=== PATIENT | male | born 1975 | race Caucasian/White ===

== ENCOUNTER 2017-10-31 16:20 | Inpatient (IN) ==
--- NOTE | 2017-10-31 17:23 | Emergency Department Note ---
START Narrative - START START: I examined this patient and my medical decision-making was reviewed with the MOLD SPRAYER/PA/Advanced Practice Nurse/Resident Physician. I agree with the documented findings, disposition and treatment plan as described except to the extent set forth below. ED attending note: Patient seen with emergency medicine resident Dr. Nas Hanna. We independently evaluated the patient. We independently had face-to- face contact with the patient. Please see a copy of his note for details of the history and physical, evaluation, management and disposition of this emergency Department patient. Briefly: 42-year-old male prior history of heart problems. In by police for paranoid delusions thinking that there is report social medial route to get him. He is unable to care for self. Briefly decreased some suicidal ideations. Is awake and alert cooperative at this time. Physical examination is benign. We will undergo medical clearance and evaluation by mental health services. Disposition pending
--- NOTE | 2017-10-31 17:23 | Emergency Department Note ---
Disposition Clinical Impression: Psychosis Qualifiers: Psychosis type: delusional disorder Qualified Code(s): F22 - Delusional disorders Disposition: Admitted As Inpatient Condition: Good Referrals: NONE,PCP [Primary Care Provider] - Forms: ED Satisfaction Letter Time of Disposition: 21:52 General Adult HPI - General Chief complaint: ED Psychiatric Symptoms Stated complaint: psych Time Seen by Provider: 10/31/17 16:40 Source: patient Mode of arrival: ambulatory Limitations: no limitations Nursing Notes Reviewed: Yes Vital Signs Reviewed: Yes - History of Present Illness HPI Narrative: Patient is a 42-year-old male with a past medical history of anxiety, psychosis and admission to psychiatric facility presenting to the emergency department with complaints that people are out to get him on social media. Patient is denying any homicidal or suicidal thoughts or ideations. He is denying any recent drug use, however he does admit to marijuana use occasionally. Denies alcohol use at this time. Patient is speaking in very pressured tones appears very paranoid throughout my questioning. He states that there is people on social media are out to get him and his family also attack his children. Continuously tries to show me on his cellular device. Pain Scale: 5 - Related Data Previous Rx's Medication Instructions Recorded Gabapentin [Neurontin] 600 mg PO TID #90 capsule 05/11/17 LORazepam [Ativan] 1 mg PO TID PRN #30 tablet 05/11/17 OLANZapine [Zyprexa Zydis] 10 mg PO BID #60 tab.rapdis 05/11/17 Allergies Allergy/AdvReac Type Severity Reaction Status Date / Time No Known Allergies Allergy Verified 05/06/17 15:17 All systems ED: reviewed and negative except as stated. Review of Systems: As Per HPI Constitutional: Denies: fever, chills Cardiovascular: Denies: chest pain, palpitations Respiratory: Denies: cough Psychiatric: Reports: anxiety Past Medical History - Past Medical History Attestation: Yes The following information was validated with the patient. Medical history: Reports: no medical history, other Surgical history: Reports: no surgical history Psychiatric history: Reports: anxiety, ADHD, bipolar - Social History Smoking Status: Current every day smoker Smokeless Tobacco Status: No Alcohol use: Reports: none Drug use: Reports: none Physical Exam CONSTITUTIONAL: Alert and oriented X3, well-nourished, well appearing, in no apparent distress HEAD: Normocephalic; atraumatic. EYES: PERRL, no scleral icterus. NOSE: The nose is normal in appearance without rhinorrhea RESP: Normal chest excursion with respiration; breath sounds clear and equal bilaterally; no wheezes, rhonchi, or rales CARD: Regular rhythm, without murmurs, rub or gallop ABD: Non-distended; non-tender, soft,without rigidity, rebound or guarding SKIN: Normal for age and race; warm and dry; no apparent lesions Psych: Patient has pressured speech and is very paranoid. Denying SI and HI. - General Limitations: no limitations General appearance: alert, in no apparent distress Course - Reevaluation(s) Reevaluation #1: ED evaluation is completed, mental health evaluation determined that admission is required. They requested medication. Patient is getting IM Geodon and Ativan. Admission orders placed. PT stable Time: 21:51 Vital Signs Temperature 97.3 F L 10/31/17 16:22 Pulse Rate 113 10/31/17 16:22 Respiratory Rate 18 10/31/17 16:22 Blood Pressure 139/92 10/31/17 16:22 O2 Sat by Pulse Oximetry 100 10/31/17 16:22 Temperature 97.3 F L 10/31/17 16:22 Pulse Rate 0 10/31/17 20:00 Respiratory Rate 12 10/31/17 20:00 Blood Pressure 0/0 10/31/17 20:00 O2 Sat by Pulse Oximetry 0 10/31/17 20:00 Oxygen Delivery Oxygen Delivery Room Air Medical Decision Making - Medical Records Medical records reviewed: Yes I reviewed the patient's medical records. - Lab Data Lab results reviewed: Yes I reviewed the patient's lab results. Result diagrams: 10/31/17 17:39 10/31/17 17:39 Lab Results 10/31/17 10/31/17 10/31/17 Range/Units 17:39 17:39 18:16 WBC 10.9 (4.3-11.1) K/mcL RBC 5.64 H (4.19-5.50) M/mcL Hgb 16.6 (12.9-16.9) g/dL Hct 48.9 (37.5-50.1) % MCV 86.7 (83.0-100.0) fL MCH 29.4 (28.0-33.3) pg MCHC 33.9 (31.6-35.5) g/dL RDW 12.6 (11.5-14.5) % Plt Count 287 (140-400) K/mcL MPV 8.8 L (9.4-12.4) fL Immature Gran % 0.3 (0-4) % Seg Neutrophils % 73.5 % Lymphocytes % 17.9 % Monocytes % 7.9 % Eosinophils % 0.1 % Basophils % 0.3 % Neutrophils # 8.0 (1.6-8.9) K/mcL Lymphocytes # 2.0 (0.6-4.6) K/mcL Monocytes # 0.9 (0.0-1.3) K/mcL Eosinophils # 0.0 (0.0-0.6) K/mcL Basophils # 0.0 (0.0-0.2) K/mcL Sodium 138 (136-145) mEq/L Potassium 3.8 (3.5-5.1) mEq/L Chloride 101 (98-107) mEq/L Carbon Dioxide 27 (23-29) mEq/L BUN 23 H (6-20) mg/dL Creatinine 0.97 (0.70-1.30) mg/dL Est GFR ( Amer) > 60 (> 60) Est GFR (Non-Af Amer) > 60 (> 60) BUN/Creatinine Ratio 24 (6-26) Glucose 100 (70-105) mg/dL Calculated Osmolality 290 (280-300) Calcium 10.1 (8.6-10.3) mg/dL Urine Color Dark Yellow (Yellow) Urine Clarity Clear (Clear) Urine pH 5.5 (5.0-8.0) pH Units Ur Specific [place] > 1.030 H (1.010-1.025) Urine Protein 30 H (Neg-Trace) mg/dL Urine Glucose (UA) 250 H (Normal) mg/dL Urine Ketones Trace H (Negative) mg/dL Urine Blood Negative (Negative) Urine Nitrite Negative (Negative) Urine Bilirubin Small H (Negative) Urine Urobilinogen Normal (Normal) mg/dL Ur Leukocyte Esterase Negative (Negative) Urine Microscopic RBC 3-5 H (0-3) per hpf Urine Microscopic WBC 3-5 H (0-3) per hpf Ur Squamous Epith Cells Moderate H (None-Few) per lpf Urine Bacteria None Seen (None-Few) per hpf Hyaline Casts Few (None-Few) per lpf Salicylates < 5.0 L (15.0-30.0) mg/dL Urine Opiates Screen (Ryekeb=146) ng/mL Acetaminophen < 1.0 L (10-30) mcg/mL Ur Barbiturates Screen (Rkmkrg=492) ng/mL Ur Phencyclidine Scrn (Cutoff=25) ng/mL Ur Amphetamines Screen (Jhvnqj=3382) ng/mL U Benzodiazepines Scrn (Amdron=471) ng/mL Urine Cocaine Screen (Cutoff= 300) ng/mL U Marijuana (THC) Screen (Cutoff = 50) ng/mL Ethyl Alcohol < 10 (0-10) mg/dL 10/31/17 Range/Units 18:16 WBC (4.3-11.1) K/mcL RBC (4.19-5.50) M/mcL Hgb (12.9-16.9) g/dL Hct (37.5-50.1) % MCV (83.0-100.0) fL MCH (28.0-33.3) pg MCHC (31.6-35.5) g/dL RDW (11.5-14.5) % Plt Count (140-400) K/mcL MPV (9.4-12.4) fL Immature Gran % (0-4) % Seg Neutrophils % % Lymphocytes % % Monocytes % % Eosinophils % % Basophils % % Neutrophils # (1.6-8.9) K/mcL Lymphocytes # (0.6-4.6) K/mcL Monocytes # (0.0-1.3) K/mcL Eosinophils # (0.0-0.6) K/mcL Basophils # (0.0-0.2) K/mcL Sodium (136-145) mEq/L Potassium (3.5-5.1) mEq/L Chloride (98-107) mEq/L Carbon Dioxide (23-29) mEq/L BUN (6-20) mg/dL Creatinine (0.70-1.30) mg/dL Est GFR ( Amer) (> 60) Est GFR (Non-Af Amer) (> 60) BUN/Creatinine Ratio (6-26) Glucose (70-105) mg/dL Calculated Osmolality (280-300) Calcium (8.6-10.3) mg/dL Urine Color (Yellow) Urine Clarity (Clear) Urine pH (5.0-8.0) pH Units Ur Specific [place] (1.010-1.025) Urine Protein (Neg-Trace) mg/dL Urine Glucose (UA) (Normal) mg/dL Urine Ketones (Negative) mg/dL Urine Blood (Negative) Urine Nitrite (Negative) Urine Bilirubin (Negative) Urine Urobilinogen (Normal) mg/dL Ur Leukocyte Esterase (Negative) Urine Microscopic RBC (0-3) per hpf Urine Microscopic WBC (0-3) per hpf Ur Squamous Epith Cells (None-Few) per lpf Urine Bacteria (None-Few) per hpf Hyaline Casts (None-Few) per lpf Salicylates (15.0-30.0) mg/dL Urine Opiates Screen Negative (Qvbrzd=451) ng/mL Acetaminophen (10-30) mcg/mL Ur Barbiturates Screen Negative (Iyjhlk=583) ng/mL Ur Phencyclidine Scrn Negative (Cutoff=25) ng/mL Ur Amphetamines Screen Positive H (Iyxqlw=4350) ng/mL U Benzodiazepines Scrn Positive H (Qshpzp=845) ng/mL Urine Cocaine Screen Negative (Cutoff= 300) ng/mL U Marijuana (THC) Screen Positive H (Cutoff = 50) ng/mL Ethyl Alcohol (0-10) mg/dL
[2017-10-31 18:06] LABS: Basophils % 0.3 %; Eosinophils % 0.1 %; Hematocrit 48.9 % (37.5-50.1); Hemoglobin 16.6 g/dL (12.9-16.9); Immature Granulocytes % 0.3 % (0-4); Lymphocytes % 17.9 %; Mean Corpuscular HGB Conc 33.9 g/dL (31.6-35.5); Mean Corpuscular Hemoglobin 29.4 pg (28.0-33.3); Mean Corpuscular Volume 86.7 fL (83.0-100.0); Mean Platelet Volume 8.8 fL (9.4-12.4); Monocytes # 0.9 K/mcL (0.0-1.3); Monocytes % 7.9 %; Platelet Count 287 K/mcL (140-400); Red Blood Count 5.64 M/mcL (4.19-5.50); Red Cell Distribution Width 12.6 % (11.5-14.5); Segmented Neutrophils % 73.5 %
[2017-10-31 18:18] LABS: BUN/Creatinine Ratio 24 (6-26); Blood Urea Nitrogen 23 mg/dL (6-20); Calcium 10.1 mg/dL (8.6-10.3); Carbon Dioxide 27 mEq/L (23-29); Chloride 101 mEq/L (98-107); Glucose 100 mg/dL (70-105); Osmolality,Calculated 290 (280-300); Potassium 3.8 mEq/L (3.5-5.1); Sodium 138 mEq/L (136-145); eGFR For African Americans > 60 (> 60); eGFR For Non-African Americans > 60 (> 60)
[2017-10-31 18:26] LABS: Bilirubin,Urine Small (Negative); Blood,Urine Negative (Negative); Clarity,Urine Clear (Clear); Color,Urine Dark Yellow (Yellow); Glucose,Urine (UA) 250 mg/dL (Normal); Ketones,Urine Trace mg/dL (Negative); Leukocyte Esterase,Urine Negative (Negative); Nitrite,Urine Negative (Negative); PH,Urine 5.5 pH Units (5.0-8.0); Protein,Urine 30 mg/dL (Neg-Trace); Specific Gravity,Urine > 1.030 (1.010-1.025); Urobilinogen,Urine Normal (Normal)
[2017-10-31 18:28] LABS: Bacteria,Urine None Seen per hpf (None-Few); Hyaline Casts,Urine Few per lpf (None-Few); Squamous Epithelial Cell,Urine Moderate per lpf (None-Few)
[2017-10-31 18:31] LABS: Amphetamine Screen,Urine Positive ng/mL (Cutoff=1000); Barbiturate Screen,Urine Negative ng/mL (Cutoff=200); Benzodiazepines Screen,Urine Positive ng/mL (Cutoff=200); Cannabinoid Screen,Urine Positive ng/mL (Cutoff = 50); Cocaine Screen,Urine Negative ng/mL (Cutoff= 300); Opiate Screen,Urine Negative ng/mL (Cutoff=300); Phencyclidine Screen,Urine Negative ng/mL (Cutoff=25)
[2017-10-31 18:43] LABS: Acetaminophen < 1.0 mcg/mL (10-30); Ethanol < 10 mg/dL (0-10); Salicylate < 5.0 mg/dL (15.0-30.0)
[2017-10-31] MEDS: *HR* LORazepam 2 MG/ML VIAL IM ONE ×2 (21:58→22:26)
[2017-10-31] MEDS: Ziprasidone injection 20 MG/ML VIAL IM ONE ×2 (21:59→22:25)
[2017-10-31] MEDS ORDERED: MOM Conc 10 ML UD.LIQ PO PRN (22:08)
[2017-10-31] MEDS ORDERED: *HR* LORazepam 1 MG TABLET PO PRN (22:08)
[2017-10-31] MEDS ORDERED: Haloperidol Lactate 5 MG/ML VIAL IM PRN (22:08)
[2017-10-31] MEDS ORDERED: Mag Hydrox/Al Hydrox/Simeth 30 ML UDC PO PRN (22:08)
[2017-10-31] MEDS ORDERED: *HR* LORazepam 2 MG/ML VIAL IM PRN (22:08)
[2017-11-01] MEDS: OLANZapine 10 MG TAB.RAPDIS PO SCH ×2 (03:36→20:50)
[2017-11-01] MEDS: Nicotine 21 MG PATCH.TD24 TD SCH (08:21)
[2017-11-01] MEDS ORDERED: Ziprasidone injection 20 MG/ML VIAL IM ONE (11:59)
--- NOTE | 2017-11-01 15:54 | Psychiatry History & Physical ---
Date of Encounter: 11/01/17 Time of Encounter: 15:45 History of Present Illness Patient Stated Chief Complaint: I control the intnernet Medicare Admission Attestation: For traditional Medicare patients the provided hospital inpatient services are reasonable and necessary and in the case of services not specified as inpatient -only under 42 CFR 419.22 (n), that they are appropriately provided as inpatient services in accordance 42 CFR 412.3. For Critical Access Hospital the patient may reasonably be expected to be discharged or transferred to a hospital within 96 hours after admission to the Critical Access Hospital. Admitted From: Emergency Dept Plans for Post Hospital Care: Home History of Present Illness: Mr. Hoffmann is a 42 year old male The patient was admitted to 1 a on an emergency hold. The patient was on the street he approached a brooch and bracelet maker and said that he was being harassed by those unsocial media. He stated that he wanted to get help for this. The patient has been seen in the ER he tested positive for benzodiazepines amphetamines and marijuana. I approached him in the TV room he came at me in a threatening manner he denied that he was trying to hit me but he said that he was worried that I would go to hell and that there is abuse of children going on and that somehow Pres. Villalpando is involved in this and he is not been a standby while this goes on. Based on the patient's presentation is angry affect and his refusal of emergency medicines I have deferred obtaining further history and physical exam at this time. This is based on threats towards me other patients and other staff. Meanwhile the patient is able to sit quietly at times without requiring emergency treatment Past Med Surg Social Fam HX - Past Medical History Medical history: no medical history, other - Past Psychiatric History Psychiatric history: Reports: no psych history Family psychiatric history: Unknown Family History of Suicide: Unknown - Past Surgical History Surgical History: no surgical history - Social History Smoking Status: Current every day smoker Smokeless Tobacco Status: No Alcohol use: none Drug use: none Medications & Allergies No Known Home Drugs 10/31/17 [History] 3 Allergy/AdvReac Type Severity Reaction Status Date / Time No Known Allergies Allergy Verified 05/06/17 15:17 Review of Systems ROS unobtainable: due to patient condition (The patient is threatening towards the examiner he has a delusional stream of content and cannot provide review of systems) Exam - HEENT Head exam IM: Present: atraumatic Eye exam IM: Present: EOMI ENT exam IM: Present: mucous membranes dry - Neurological Neurological exam: Present: CN II-XII intact - Constitutional Vitals: Temp Pulse Resp BP Pulse Ox 97.8 F 46 16 112/80 0 11/01/17 08:32 11/01/17 08:32 11/01/17 08:32 11/01/17 08:32 10/31/17 20:00 - Musculoskeletal Gait: normal Strength & Tone: normal for patient - Psychiatric Patient Orientation: Yes Person, Yes Time, Yes Place, Yes Circumstance Level of alertness: Alert Behavior: uncooperative Psychomotor activity: Agitated Eye Contact: Prolonged Contact Mood Description: Irritable Speech Volume: Loud Speech pattern: disorganized, inappropriate to situation, rambling Language & Vocabulary: grade school level Thought Process: Flight of Ideas, Disorganized Thought Content: Yes Ideas of reference, Yes Grandiose delusion Perceptual Disturbances: Yes Reacting to internal stimuli Attention Span Ability: Unable to Focus, Unable to Sustain Attention Memory Description: Immediate Impaired, Recent Impaired Patient Reliability: Not Reliable Historian Intelligence Estimate: Average Judgment: Poor Insight: None Results - Labs Labs: Laboratory Last Values WBC 10.9 K/mcL (4.3-11.1) 10/31/17 17:39 RBC 5.64 M/mcL (4.19-5.50) H 10/31/17 17:39 Hgb 16.6 g/dL (12.9-16.9) 10/31/17 17:39 Hct 48.9 % (37.5-50.1) 10/31/17 17:39 MCV 86.7 fL (83.0-100.0) 10/31/17 17:39 MCH 29.4 pg (28.0-33.3) 10/31/17 17:39 MCHC 33.9 g/dL (31.6-35.5) 10/31/17 17:39 RDW 12.6 % (11.5-14.5) 10/31/17 17:39 Plt Count 287 K/mcL (140-400) 10/31/17 17:39 MPV 8.8 fL (9.4-12.4) L 10/31/17 17:39 Immature Gran % 0.3 % (0-4) 03/19/18 17:39 Seg Neutrophils % 73.5 % 10/31/17 17:39 Lymphocytes % 17.9 % 10/31/17 17:39 Monocytes % 7.9 % 10/31/17 17:39 Eosinophils % 0.1 % 10/31/17 17:39 Basophils % 0.3 % 10/31/17 17:39 Neutrophils # 8.0 K/mcL (1.6-8.9) 10/31/17 17:39 Lymphocytes # 2.0 K/mcL (0.6-4.6) 10/31/17 17:39 Monocytes # 0.9 K/mcL (0.0-1.3) 10/31/17 17:39 Eosinophils # 0.0 K/mcL (0.0-0.6) 10/31/17 17:39 Basophils # 0.0 K/mcL (0.0-0.2) 10/31/17 17:39 Sodium 138 mEq/L (136-145) 10/31/17 17:39 Potassium 3.8 mEq/L (3.5-5.1) 10/31/17 17:39 Chloride 101 mEq/L (98-107) 10/31/17 17:39 Carbon Dioxide 27 mEq/L (23-29) 10/31/17 17:39 BUN 23 mg/dL (6-20) H 10/31/17 17:39 Creatinine 0.97 mg/dL (0.70-1.30) 10/31/17 17:39 Est GFR ( Amer) > 60 (> 60) 10/31/17 17:39 Est GFR (Non-Af Amer) > 60 (> 60) 10/31/17 17:39 BUN/Creatinine Ratio 24 (6-26) 10/31/17 17:39 Glucose 100 mg/dL (70-105) 10/31/17 17:39 Calculated Osmolality 290 (280-300) 10/31/17 17:39 Calcium 10.1 mg/dL (8.6-10.3) 10/31/17 17:39 Urine Color Dark Yellow (Yellow) 10/31/17 18:16 Urine Clarity Clear (Clear) 10/31/17 18:16 Urine pH 5.5 pH Units (5.0-8.0) 10/31/17 18:16 Ur Specific [place] > 1.030 (1.010-1.025) H 18 18:16 Urine Protein 30 mg/dL (Neg-Trace) H 18 18:16 Urine Glucose (UA) 250 mg/dL (Normal) H 18 18:16 Urine Ketones Trace mg/dL (Negative) H 18 18:16 Urine Blood Negative (Negative) 18 18:16 Urine Nitrite Negative (Negative) 10/31/17 18:16 Urine Bilirubin Small (Negative) H 10/31/17 18:16 Urine Urobilinogen Normal mg/dL (Normal) 10/31/17 18:16 Ur Leukocyte Esterase Negative (Negative) 10/31/17 18:16 Urine Microscopic RBC 3-5 per hpf (0-3) H 10/31/17 18:16 Urine Microscopic WBC 3-5 per hpf (0-3) H 10/31/17 18:16 Ur Squamous Epith Cells Moderate per lpf (None-Few) H 10/31/17 18:16 Urine Bacteria None Seen per hpf (None-Few) 10/31/17 18:16 Hyaline Casts Few per lpf (None-Few) 18 18:16 Salicylates < 5.0 mg/dL (15.0-30.0) L 10/31/17 17:39 Urine Opiates Screen Negative ng/mL (Sninrz=738) 18 18:16 Acetaminophen < 1.0 mcg/mL (10-30) L 18 17:39 Ur Barbiturates Screen Negative ng/mL (Xewcbv=963) 18 18:16 Ur Phencyclidine Scrn Negative ng/mL (Cutoff=25) 18 18:16 Ur Amphetamines Screen Positive ng/mL (Fwdecl=8535) H 18 18:16 U Benzodiazepines Scrn Positive ng/mL (Tjwvlo=706) H 18 18:16 Urine Cocaine Screen Negative ng/mL (Cutoff= 300) 18 18:16 U Marijuana (THC) Screen Positive ng/mL (Cutoff = 50) H 18 18:16 Ethyl Alcohol < 10 mg/dL (0-10) 18 17:39 Assessment and Plan (1) Severe manic episode with psychotic symptoms Current visit: Yes Status: Acute Plan: Admit inpatient for safety and stabilization, Close observation Risks, benefits, side effects, alternatives discussed w/pt: Yes Patient agreeable to treatment: Yes Plans for Post Hospital Care: Home Estimated Length of Stay ( Days): 8 (2) 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 Current visit: Yes Status: Acute Plan: Close observation, Secure weapons Risks, benefits, side effects, alternatives discussed w/pt: Yes Patient agreeable to treatment: Yes Plans for Post Hospital Care: Home (3) 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
[2017-11-01] MEDS: hydrOXYzine pamoate 25 MG CAPSULE PO PRN (20:50)
[2017-11-01] MEDS: traZODone 50 MG TABLET PO PRN (20:50)
[2017-11-01] MEDS ORDERED: *HR* LORazepam 2 MG/ML VIAL IM PRN (23:20)
[2017-11-01] MEDS ORDERED: *HR* LORazepam 1 MG TABLET PO PRN (23:26)
[2017-11-01] MEDS ORDERED: Ziprasidone injection 20 MG/ML VIAL IM PRN (23:28)
[2017-11-02] MEDS: Nicotine 21 MG PATCH.TD24 TD SCH (08:48)
--- NOTE | 2017-11-02 13:10 | Psychiatry Progress Note ---
Date of Encounter: 11/02/17 Time of Encounter: 12:45 Subjective Interval history: The patient was seen after lunch. He was resting in his room. He was lying in bed and under the covers. The patient has been on a 72 hour hold which is due to be up. The patient has improved gradually over the period of time but is been preferential when offered Zyprexa A he only took Ativan when threatening he continued to increase his agitation and oriented to get Ativan. He refused Haldol. Today the patient continues to make accusatory and other claims believes that he is being persecuted by others. When asked about follow-up he said that he did not like the requirements that he had to go through. Because he might be staying in a family member's home and that home might have bedbugs the patient would be required, one hour early shower before he seen. The patient did not complete medications and he is scheduled for November 23 [facility] but it is not clear that he has full intention to show. The patient did not acknowledge a significant drug problem with the need for sobriety or abstinence. The patient was hostile and irritable but not directly threatening. He has a roommate or we are trying to get in touch with. A roommate might vouch for his safety and security in the community Review of Systems Psychiatric: Reports: anxiety, auditory hallucinations, difficulty concentrating , irritability Results - Vital Signs Vital Signs: Temp Pulse Resp BP Pulse Ox 98.4 F 103 16 100/72 0 11/02/17 09:00 11/02/17 09:00 11/02/17 09:00 11/02/17 09:00 10/31/17 20:00 Assessment and Plan (1) Severe manic episode with psychotic symptoms Current visit: Yes Status: Acute Plan: Continue hospitalization, Close observation, Secure weapons Risks, benefits, side effects, alternatives discussed w/pt: Yes Patient agreeable to treatment: Yes (2) 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 Current visit: Yes Status: Acute Plan: Continue hospitalization, Group Therapy, Family/Supportive other meeting Risks, benefits, side effects, alternatives discussed w/pt: Yes Patient agreeable to treatment: Yes (3) 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 Current visit: Yes Status: Acute Plan: Continue hospitalization, Close observation Risks, benefits, side effects, alternatives discussed w/pt: Yes Patient agreeable to treatment: No (4) Other stimulant abuse with stimulant-induced psychotic disorder, unspecified Current visit: Yes Status: Acute Plan: Continue hospitalization, Close observation, Monitor sleep, Monitor appetite Risks, benefits, side effects, alternatives discussed w/pt: No Patient agreeable to treatment: No (5) Patient's noncompliance with other medical treatment and regimen Current visit: Yes Status: Chronic Plan: Continue hospitalization, Close observation Risks, benefits, side effects, alternatives discussed w/pt: Yes Patient agreeable to treatment: Yes Consult Discharge Plan - Plan Referrals: [facility] [Outside] - 11/23/17 3:00 pm (The above appointment is with Liliya Arreola for outpatient mental health and substance abuse counseling services. You will also see Anjali Santoyo on 12/13/2017 at 11:00am. The above appointment(s) reflects first availability. You may contact the office regularly to check for cancellations that may allow you to be seen sooner. You may also walk-in to the clinic anytime during business hours to be seen on crisis if needed. The 07/03 crisis line provided to you is also always available.) Psychiatry Exam - Constitutional Vitals: Temp Pulse Resp BP Pulse Ox 98.4 F 103 16 100/72 0 11/02/17 09:00 11/02/17 09:00 11/02/17 09:00 11/02/17 09:00 10/31/17 20:00 General appearance: age & developmentally appropriate, thin - Musculoskeletal Gait: normal Station: other Strength & Tone: normal for patient - Psychiatric Patient Orientation: Yes Person, Yes Time, Yes Place, Yes Circumstance Level of alertness: Alert Behavior: aggressive, suspicious, dramatic Psychomotor activity: Increased Eye Contact: Prolonged Contact Mood Description: Angry, Irritable Affect description: congruent with mood Speech Volume: Loud Speech pattern: spontaneous Language & Vocabulary: consistent with education Thought Process: Tangential Thought Content: Yes Ideas of reference, Yes Preoccupation, Yes Paranoid delusion Perceptual Disturbances: No Auditory hallucinations, No Visual hallucinations Attention Span Ability: Unable to Sustain Attention Memory Description: Grossly Intact Patient Reliability: Not Reliable Historian Fund of knowledge: Yes average Intelligence Estimate: Average Judgment: Limited Insight: Minimal
[2017-11-02] MEDS: hydrOXYzine pamoate 25 MG CAPSULE PO PRN ×2 (14:06→21:28)
[2017-11-02] MEDS: Acetaminophen 325 MG TABLET PO PRN ×2 (14:06→21:31)
[2017-11-02] MEDS: traZODone 50 MG TABLET PO PRN (21:27)
[2017-11-02] MEDS: OLANZapine 10 MG TAB.RAPDIS PO SCH (21:27)
--- NOTE | 2017-11-03 09:05 | Discharge Summary ---
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 Priority: Secondary Status: Resolved (4) Other stimulant abuse with stimulant-induced psychotic disorder, unspecified Status: Resolved (5) Patient's noncompliance with other medical treatment and regimen Status: Chronic Medications - Discharge Medications Prescriptions: hydrOXYzine pamoate [HydrOXYzine Pamoate] 25 mg PO TID PRN 30 Days #90 capsule PRN Reason: Anxiety LORazepam [Ativan] 1 mg PO Q6H PRN 30 Days #30 tablet PRN Reason: moderate agitation OLANZapine [Zyprexa Zydis] 10 mg PO HS 30 Days #30 tab.rapdis traZODone [TraZODone] 50 mg PO HS PRN 30 Days #30 tablet PRN Reason: Insomnia LORazepam [Ativan] 1 mg PO Q6H PRN 30 Days #30 tablet 11/03/17 [Rx] OLANZapine [Zyprexa Zydis] 10 mg PO HS 30 Days #30 tab.rapdis 11/03/17 [Rx] hydrOXYzine pamoate [HydrOXYzine Pamoate] 25 mg PO TID PRN 30 Days #90 capsule 11/03/17 [Rx] traZODone [TraZODone] 50 mg PO HS PRN 30 Days #30 tablet 11/03/17 [Rx] 3 Allergy/AdvReac Type Severity Reaction Status Date / Time No Known Allergies Allergy Verified 05/06/17 15:17 Provider Date of admission: 10/31/17 21:59 Primary care physician: PCP NONE Discharging clinician: Christian Monahan Psychiatry Exam - Constitutional Vitals: Temp Pulse Resp BP Pulse Ox 98.6 F 76 16 103/67 0 11/02/17 19:59 11/02/17 19:59 11/02/17 19:59 11/02/17 19:59 10/31/17 20:00 General appearance: age & developmentally appropriate, well-groomed, thin - Musculoskeletal Gait: brisk Station: relaxed Strength & Tone: normal for patient - Psychiatric Patient Orientation: Yes Person, Yes Time, Yes Place Level of alertness: Alert Behavior: calm, cooperative Psychomotor activity: Normal Eye Contact: Maintains Eye Contact Mood Description: Euthymic/stable Affect description: congruent with mood, full range Speech Volume: Normal Speech pattern: normal rate, normal rhythm, normal tone, fluent, spontaneous Language & Vocabulary: consistent with education Thought Process: Linear, Goal Oriented Thought Content: No Suicidal ideation, No Homicidal ideation, No Overt delusions , Yes Ideas of reference, Yes Preoccupation Perceptual Disturbances: No Auditory hallucinations, No Visual hallucinations Attention Span Ability: Capable of Focused Attention Memory Description: Grossly Intact Patient Reliability: Questionable Historian Fund of knowledge: Yes average, Yes aware of current events Intelligence Estimate: Average Judgment: Fair Insight: Partial Hospital Course Hospital course: Mr. Hoffmann is a 42 year old male He initially presented with a manic syndrome. He was delusional. Ideas of reference. His initial presentation was of persecutory delusion that others were trying to attack him and do things to him through social media. The patient was often focused on the TV. He also brought in staff in the part of the delusional system. The patient was offered a variety of medicines but agreed to take Ativan to help with his symptoms. The patient gradually improved and was at least cooperative with his outpatient care at the time discharge. Patient wished to continue on some of the same medicines. Arrangements were made for follow-up locally there is referred to previous discharges as the patient has documented history of noncompliance. Overall several individuals reported that the patient was back to his baseline Time spent discussing smoking cessation with patient: 3 to 10 minutes Does patient wish to continue nicotine replacement upon disc: No - Time Spent with Patient Total time spent providing and/or coordinating discharge services: Less than 30 minutes Assessment and Plan - Patient/Caregiver Discharge Instructions Activity: resume usual activities as tolerated Diet: regular diet - Follow up Plan Follow up with: [facility] [Outside] - 11/03/17 10:00 am (The above appointment is with Liliya Arreola for outpatient mental health and substance abuse counseling and case management services. You are also scheduled to see Liliya again on 06/2018 at 3:00pm. You will also see Anjali Santoyo on 12/13/2017 at 11:00am. The above appointment(s) reflects first availability. You may contact the office regularly to check for cancellations that may allow you to be seen sooner. You may also walk-in to the clinic anytime during business hours to be seen on crisis if needed. The 24/ crisis line provided to you is also always available.) Functional capacity at discharge: independent ambulation Overall status at discharge: patient is back to baseline Disposition: Home, Self-Care Quality - Multiple Antipsychotics Patient discharged on 2 or more antipsychotic medications: No Procedures - Procedures Procedures: Medication Management, Crisis Stabilization, Supportive Therapy, Group Therapy, Psychoeducational Therapy
[2017-11-03] MEDS: Nicotine 21 MG PATCH.TD24 TD SCH (09:11)
[2017-11-03 09:34] VITALS: BP 100/65
== END 2017-11-03 10:10 | disposition home or self-care (01) | DRG 885 ==
LOC: EMEROO 16:20 → 1ANU 21:59
PROVIDERS: ADMIT Psychiatry & Neurology Forensic Psychiatry; ATTEND Psychiatry & Neurology Forensic Psychiatry

== ENCOUNTER 2019-09-14 07:55 | Observation (INO) ==
[2019-09-14] MEDS ORDERED: *HR* LORazepam 2 MG/ML VIAL IM ONE (08:12)
[2019-09-14 08:36] LABS: Basophils % 0.2 %; Eosinophils % 0.3 %; Hemoglobin 17.2 g/dL (12.9-16.9); Immature Granulocytes % 0.4 % (0-4); Lymphocytes # 2.3 K/mcL (0.6-4.6); Lymphocytes % 18.9 %; Mean Corpuscular HGB Conc 35.1 g/dL (31.6-35.5); Mean Corpuscular Hemoglobin 30.3 pg (28.0-33.3); Mean Corpuscular Volume 86.4 fL (83.0-100.0); Monocytes # 0.6 K/mcL (0.0-1.3); Monocytes % 4.8 %; Neutrophils # 9.2 K/mcL (1.6-8.9); Platelet Count 290 K/mcL (140-400); Red Blood Count 5.67 M/mcL (4.19-5.50); Red Cell Distribution Width 12.3 % (11.5-14.5); Segmented Neutrophils % 75.4 %; White Blood Count 12.2 K/mcL (4.3-11.1)
[2019-09-14 08:38] LABS: Bilirubin,Urine Small (Negative); Blood,Urine Negative (Negative); Clarity,Urine Clear (Clear); Color,Urine Dark Yellow (Yellow); Glucose,Urine (UA) 250 mg/dL (Normal); Ketones,Urine Trace mg/dL (Negative); Leukocyte Esterase,Urine Trace (Negative); Nitrite,Urine Negative (Negative); PH,Urine 5.5 pH Units (5.0-8.0); Protein,Urine 30 mg/dL (Neg-Trace); Specific Gravity,Urine > 1.030 (1.010-1.025); Urobilinogen,Urine Normal (Normal)
[2019-09-14 09:14] LABS: Bacteria,Urine Moderate per hpf (None-Few)
[2019-09-14 09:15] LABS: Hyaline Casts,Urine Few per lpf (None-Few); Mucus,Urine Many per lpf (Few)
[2019-09-14 09:16] LABS: Calcium Oxalate Crystals,Urine Present; Squamous Epithelial Cell,Urine Few per lpf (None-Few)
[2019-09-14 09:28] LABS: Acetaminophen < 10 mcg/mL (10-20); BUN/Creatinine Ratio 12 (6-26); Blood Urea Nitrogen 11 mg/dL (6-20); Calcium 10.1 mg/dL (8.6-10.3); Carbon Dioxide 24 mEq/L (23-29); Chloride 103 mEq/L (98-107); Ethanol < 10 mg/dL (Less than 10); Glucose 98 mg/dL (70-105); Osmolality,Calculated 289 (280-300); Potassium 3.5 mEq/L (3.5-5.1); Salicylate < 2.5 mg/dL (15.0-30.0); Sodium 140 mEq/L (136-145); eGFR For African Americans > 60 (> 60); eGFR For Non-African Americans > 60 (> 60)
[2019-09-14 09:30] LABS: Amphetamine Screen,Urine Negative ng/mL (Cutoff=1000); Barbiturate Screen,Urine Negative ng/mL (Cutoff=200); Benzodiazepines Screen,Urine Negative ng/mL (Cutoff=200); Cannabinoid Screen,Urine Positive ng/mL (Cutoff = 50); Cocaine Screen,Urine Negative ng/mL (Cutoff= 300); Opiate Screen,Urine Negative ng/mL (Cutoff=300); Phencyclidine Screen,Urine Negative ng/mL (Cutoff=25)
[2019-09-14] MEDS ORDERED: traZODone 50 MG TABLET PO PRN (11:49)
[2019-09-14] MEDS ORDERED: Mag Hydrox/Al Hydrox/Simeth 30 ML UDC PO PRN (11:49)
[2019-09-14] MEDS ORDERED: *HR* LORazepam 1 MG TABLET PO PRN (11:49)
[2019-09-14] MEDS ORDERED: *HR* LORazepam 2 MG/ML VIAL IM PRN (11:49)
[2019-09-14] MEDS ORDERED: MOM Conc 10 ML UD.LIQ PO PRN (11:49)
[2019-09-14] MEDS ORDERED: Haloperidol Lactate 5 MG/ML VIAL IM PRN (11:49)
[2019-09-14] MEDS: Nicotine 21 MG PATCH.TD24 TD SCH (19:32)
[2019-09-14] MEDS: OLANZapine 5 MG TAB.RAPDIS PO SCH (20:11)
[2019-09-15] MEDS: Acetaminophen 325 MG TABLET PO PRN ×2 (12:20→18:22)
[2019-09-15] MEDS: hydrOXYzine pamoate 25 MG CAPSULE PO PRN ×2 (15:11→21:02)
[2019-09-15] MEDS: Nicotine 21 MG PATCH.TD24 TD SCH (18:21)
[2019-09-15] MEDS: OLANZapine 5 MG TAB.RAPDIS PO SCH (21:02)
[2019-09-16] MEDS: Acetaminophen 325 MG TABLET PO PRN ×3 (08:26→21:43)
[2019-09-16] MEDS: hydrOXYzine pamoate 25 MG CAPSULE PO PRN (10:48)
[2019-09-16] MEDS: Nicotine 21 MG PATCH.TD24 TD SCH (17:35)
[2019-09-16] MEDS ORDERED: OLANZapine 10 MG TAB.RAPDIS PO SCH (21:00)
[2019-09-17 09:00] VITALS: BP 126/65
[2019-09-17] MEDS: Acetaminophen 325 MG TABLET PO PRN (09:28)
== END 2019-09-17 16:00 | disposition home or self-care (01) ==
LOC: 1ANU 07:55 → EMEROOARM 07:55 → 1ANU 12:06
PROVIDERS: ADMIT Psychiatry & Neurology Psychiatry; ATTEND Psychiatry & Neurology Psychiatry